=== PATIENT | male | born 1945 | race Caucasian/White ===

== ENCOUNTER 2017-10-02 08:59 | Observation (INO) | payer OTHER ==
[2017-10-01 14:58] VITALS: BP 170/95
[2017-10-01 15:24] LABS: APPEARANCE,URINE Clear (CLEAR); BILIRUBIN,URINE Negative (NEGATIVE); COLOR,URINE Yellow (YELLOW); GLUCOSE, URINE (UA) Negative (NEGATIVE); KETONES,URINE Negative (NEGATIVE); LEUKOCYTE ESTERASE ,URINE Negative (NEGATIVE); NITRATE,URINE Negative (NEGATIVE); OCCULT BLOOD,URINE Negative (NEGATIVE); PH,URINE 5.5 (5.0-8.0); PROTEIN,URINE POS 1+ (NEGATIVE)
[2017-10-01 15:47] LABS: BACTERIA,URINE Rare /HPF (None Seen); RBC,URINE None Seen /HPF (0-1); SQUAMOUS EPITHELIAL CELL,UR Rare /HPF (0-2); WBC,URINE 0-1 /HPF (0-1)
[2017-10-01 15:50] LABS: INR 0.99 (0.85-1.15); PARTIAL THROMBOPLASTIN TIME 26.5 SEC (26.3-35.5); PROTHROMBIN TIME 10.4 SEC (9.6-11.6)
[~2017-10-02] VITALS: Ht 177.8 cm; Wt 123.5 kg
[2017-10-02] VITALS (21 sets, daily range): BP systolic 117–166; BP diastolic 71–100
[~2017-10-02 08:59] MED LIST: ATOR40TA71 PO; CARV12.511 PO; LOSA25TA21 PO; NITR0.4T50 SL
[2017-10-02] MEDS ORDERED: LACTATED RINGERS 1000ML 1,000 ML IV ONE (10:40)
[2017-10-02] MEDS ORDERED: CELECOXIB 200 MG CAP ONE (11:01)
[2017-10-02] MEDS ORDERED: ACETAMINOPHEN EXTRA STRENGTH 500 MG TABLET ONE ×2 (11:01→11:07)
[2017-10-02] MEDS ORDERED: KETOROLAC TROMETHAMINE 15MG/ML ONE (11:02)
[2017-10-02] MEDS ORDERED: OXYCODONE HCL 10 MG TAB.SR.12H PO ONE (11:02)
[2017-10-02] MEDS ORDERED: LIDOCAINE PF 2% 5ML ABBOJECT ONE (11:14)
[2017-10-02] MEDS ORDERED: LIDOCAINE HCL-MPF 1% 5ML AMP IJ ONE (11:14)
[2017-10-02] MEDS ORDERED: LIDOCAINE HCL 4% LTA SOL 4 ML VIAL ONE (11:14)
[2017-10-02] MEDS ORDERED: SODIUM CHLORIDE 0.9% 10 ML VIAL ONE (11:14)
[2017-10-02] MEDS ORDERED: ROCURONIUM BROMIDE 10MG/1ML 5ML VL ONE (11:14)
[2017-10-02] MEDS ORDERED: LIDOCAINE HCL 2% JELLY 5 ML ONE (11:14)
[2017-10-02] MEDS ORDERED: DEXAMETHASONE SOD PHOSPHATE 10MG/ML 1ML VIAL ONE (11:14)
[2017-10-02] MEDS ORDERED: ONDANSETRON HCL MDV 20ML 2 MG/ML VIAL ONE (11:14)
[2017-10-02] MEDS ORDERED: PHENYLEPHRINE HCL 10 MG/ML 1ML VIAL IV ONE (11:14)
[2017-10-02] MEDS ORDERED: NEOSTIGMINE METHYLSULFATE 1MG/ML IV ONE (11:14)
[2017-10-02] MEDS ORDERED: GLYCOPYRROLATE 0.2 MG/ML 5 ML VIAL ONE (11:14)
[2017-10-02] MEDS ORDERED: CEFAZOLIN SODIUM 1 GM VIAL ONE (11:29)
[2017-10-02] MEDS ORDERED: BUPIVACAINE/EPI/PF 0.25% 30ML VIAL IJ ONE (11:29)
[2017-10-02] MEDS ORDERED: TRANEXAMIC ACID 1000MG/10ML IV ONE (11:30)
[2017-10-02] MEDS: CEFAZOLIN SODIUM 1 GM VIAL ONE ×2 (11:37→11:50)
[2017-10-02] MEDS ORDERED: MEPERIDINE-PF 25 MG/ML SYG ONE ×2 (13:58→14:17)
[2017-10-02] MEDS ORDERED: OXYCODONE HCL 5 MG TAB PO PRN (16:30)
[2017-10-02] MEDS: OXYCODONE HCL 5 MG TAB PO PRN (17:10)
[2017-10-02] MEDS ORDERED: COMPOUND IV REFRIGERATED 1 EACH IVSOLN MISC PRN (17:30)
[2017-10-02] MEDS ORDERED: DIPHENHYDRAMINE HCL 25 MG CAPSULE PO PRN (18:30)
[2017-10-02] MEDS ORDERED: FERROUS FUMARATE 324 MG TABLET PO PRN (18:30)
[2017-10-02] MEDS ORDERED: POTASSIUM CHLORIDE 20 MEQ ERTAB PO PRN (18:30)
[2017-10-02] MEDS ORDERED: CALCIUM CARBONATE 500 MG TABLET PO PRN (18:30)
[2017-10-02] MEDS ORDERED: DiphenhydrAMINE HCL 50 MG/ML VIAL IVP PRN (18:30)
[2017-10-02] MEDS ORDERED: LIDOCAINE HCL-MPF 1% 2ML VIAL IVP PRN (18:30)
[2017-10-02] MEDS ORDERED: POTASSIUM CHLORIDE 20MEQ/100ML 100 ML IV PRN (18:30)
[2017-10-02] MEDS ORDERED: POTASSIUM CHLORIDE 10% ELIXIR 20 MEQ/15 ML UDCUP PO PRN (18:30)
[2017-10-02] MEDS: SODIUM CHLORIDE 0.9% 1000ML 1,000 ML IV SCH (18:54)
[2017-10-02] MEDS ORDERED: TRAMADOL HCL 50 MG TABLET PO PRN (19:00)
[2017-10-02] MEDS ORDERED: PROMETHAZINE HCL 25 MG/ML 1ML AMPULE IM PRN (19:00)
[2017-10-02] MEDS: ASPIRIN 325 MG TABLET PO SCH (20:41)
[2017-10-02] MEDS: ACETAMINOPHEN 325 MG TAB PO SCH (20:41)
[2017-10-02] MEDS: CEFAZOLIN 3GM /D5W 100ML 100 ML IV SCH (20:42)
[2017-10-02] MEDS: FAMOTIDINE 20MG TAB 20 MG TAB PO SCH (20:42)
[2017-10-02] MEDS: CARVEDILOL 12.5 MG TABLET PO SCH (20:47)
[2017-10-02] MEDS ORDERED: TEMAZEPAM 15 MG CAPSULE PO PRN (21:00)
[2017-10-02] MEDS ORDERED: ATORVASTATIN CALCIUM 40 MG TABLET PO SCH (21:00)
[2017-10-02] MEDS ORDERED: BENZOCAINE/MENTH/CETYLPYRD CL 1 EACH LOZENGE MM PRN (21:45)
[2017-10-03] MEDS: ACETAMINOPHEN 325 MG TAB PO SCH ×3 (00:09→11:54)
[2017-10-03 00:11] VITALS: BP 130/64
[2017-10-03] MEDS: CEFAZOLIN 3GM /D5W 100ML 100 ML IV SCH (02:41)
[2017-10-03] MEDS: SODIUM CHLORIDE 0.9% 1000ML 1,000 ML IV SCH ×2 (02:45→14:29)
[2017-10-03] MEDS: OXYCODONE HCL 5 MG TAB PO PRN ×2 (03:36→08:57)
[2017-10-03 04:41] VITALS: BP 129/61
[2017-10-03 05:19] LABS: HEMATOCRIT 31.4 % (42-54); MEAN CORPUSCULAR HEMOGLOBIN 32.5 pg (27.0-33.0); MEAN CORPUSCULAR HGB CONC 35.1 g/dL (32.0-36.0); MEAN CORPUSCULAR VOLUME 92.5 fL (79-99); PLATELET COUNT (AUTO) 217 K/uL (130-400); RED BLOOD CELL COUNT(AUTO) 3.39 MIL/uL (4.50-6.20); RED CELL DISTRIBUTION WIDTH 12.9 % (11.0-15.5); WHITE BLOOD COUNT (AUTO) 13.5 K/uL (4.8-10.8)
[2017-10-03 05:27] LABS: INR 1.06 (0.85-1.15); PROTHROMBIN TIME 10.9 SEC (9.6-11.6)
[2017-10-03 05:28] LABS: CREATININE 0.9 mg/dL (0.5-1.5)
[2017-10-03 08:01] VITALS: BP 145/71
[2017-10-03] MEDS: ASPIRIN 325 MG TABLET PO SCH (08:55)
[2017-10-03] MEDS: CARVEDILOL 12.5 MG TABLET PO SCH (08:56)
[2017-10-03] MEDS: FAMOTIDINE 20MG TAB 20 MG TAB PO SCH (08:57)
[2017-10-03] MEDS ORDERED: TAMSULOSIN HCL 0.4 MG CAP.ER.24H PO SCH (09:00)
[2017-10-03] MEDS ORDERED: POLYETHYLENE GLYCOL 3350 17 GM POWD.PACK PO SCH (09:00)
[2017-10-03 11:37] VITALS: BP 127/61
[2017-10-03] MEDS ORDERED: PSYLLIUM SEED 1 EACH PACKET PO SCH (12:00)
[2017-10-03] MEDS ORDERED: HYDR-309 PO (12:05)
[2017-10-03] MEDS ORDERED: ASPI-1012 PO (12:05)
[2017-10-04] MEDS ORDERED: BISACODYL 5 MG TABLET.DR PO PRN (18:30)
[2017-10-05] MEDS ORDERED: BISACODYL 10 MG SUPP.RECT RC PRN (18:30)
== END 2017-10-03 15:28 | disposition home health service (06) ==
LOC: DAH 08:59 → DAHIP 09:00 → DAH 09:00 → EDSTATUS 14:18 → 4AH 15:17
PROVIDERS: ADMIT Orthopaedic Surgery; ATTEND Orthopaedic Surgery
DX: M17.12 Unilateral primary osteoarthritis, left knee (principal); I11.9 Hypertensive heart disease without heart failure; N18.9 Chronic kidney disease, unspecified; Z79.899 Other long term (current) drug therapy; Z85.46 Personal history of malignant neoplasm of prostate
CPT/HCPCS: 27447; 36415 ×2; 80048; 81001; 85027; 85610 ×2; 85730; 88304; 88311; 94640; 96365; 96375; 97116 ×2; 97161; 97530 ×2; A4218; A4649 ×5; A4930 ×2; A9272; C1713; C1776; G0378 ×30; G8978; G8979; G8980; G8981; G8982; G8983; J0690 ×3; J1100; J2001; J2175 ×2; J2370; J2710; J3490 ×5; J7120 ×2; 96374; J1885

== ENCOUNTER 2017-10-05 18:37 | Emergency (ER) | payer OTHER ==
[~2017-10-05 18:37] MED LIST changes: +ASPI-1012 PO; +HYDR-309 PO; -LOSA25TA21 PO
[2017-10-05] MEDS ORDERED: SODIUM CHLORIDE 0.9% 1000ML 1,000 ML IV ONE (19:35)
[2017-10-05] MEDS ORDERED: CHLORPROMAZINE HCL 25 MG/ML 1ML AMP ONE ×2 (19:41→21:56)
[2017-10-05 20:18] LABS: BASOPHILS % (AUTO) 2.7 % (0.0-5.0); EOSINOPHILS % (AUTO) 0.2 % (0.0-8.0); HEMATOCRIT 28.1 % (42-54); LYMPHOCYTES % (AUTO) 7.7 % (21.0-51.0); MEAN CORPUSCULAR HEMOGLOBIN 31.6 pg (27.0-33.0); MEAN CORPUSCULAR HGB CONC 34.2 g/dL (32.0-36.0); MEAN CORPUSCULAR VOLUME 92.3 fL (79-99); MONOCYTES % (AUTO) 8.6 % (3.0-13.0); NEUTROPHILS % (AUTO) 80.8 % (40.0-77.0); PLATELET COUNT (AUTO) 211 K/uL (130-400); RED BLOOD CELL COUNT(AUTO) 3.04 MIL/uL (4.50-6.20); RED CELL DISTRIBUTION WIDTH 13.4 % (11.0-15.5)
[2017-10-05 20:26] LABS: POTASSIUM 3.7 mmol/L (3.5-5.1)
== END 2017-10-05 23:55 | disposition home or self-care (01) ==
LOC: EDH 18:37
DX: R06.6 Hiccough (principal); I10 Essential (primary) hypertension; E78.5 Hyperlipidemia, unspecified; Z88.8 Allergy status to other drugs, medicaments and biological substances; Z85.46 Personal history of malignant neoplasm of prostate; Z98.890 Other specified postprocedural states; Z72.0 Tobacco use
CPT/HCPCS: 36415; 80048; 85025; 96360; 96361; 96372 ×2; 99285; J3230 ×2; J7030

== ENCOUNTER → 2018-03-10 | Outpatient (CLI) | payer OTHER ==
[~2018-03-10] VITALS: Ht 175.3 cm; Wt 116.1 kg
[~2018-03-10] MED LIST changes: -ASPI-1012 PO; +CEFAZOLIN SODIUM 1 GM VIAL IVP SCH; +LEVO25TA54 PO; +MELO-108 PO; +TIZA2CAP9 PO
[2018-03-10 10:48] VITALS: BP 144/78
[2018-03-10 11:05] LABS: APPEARANCE,URINE Clear (CLEAR); BILIRUBIN,URINE Negative (NEGATIVE); COLOR,URINE Yellow (YELLOW); GLUCOSE, URINE (UA) Negative (NEGATIVE); KETONES,URINE Negative (NEGATIVE); LEUKOCYTE ESTERASE ,URINE Trace (NEGATIVE); NITRATE,URINE Negative (NEGATIVE); OCCULT BLOOD,URINE Moderate (NEGATIVE); PROTEIN,URINE Trace (NEGATIVE)
[2018-03-10 11:22] LABS: BACTERIA,URINE Rare /HPF (None Seen); RBC,URINE >100 /HPF (0-1); SQUAMOUS EPITHELIAL CELL,UR Rare /HPF (0-2); WBC,URINE 0-1 /HPF (0-1)
[2018-03-10 11:31] LABS: BASOPHILS % (AUTO) 0.2 % (0.0-5.0); EOSINOPHILS % (AUTO) 3.6 % (0.0-8.0); HEMATOCRIT 41.3 % (42-54); LYMPHOCYTES % (AUTO) 34.9 % (21.0-51.0); MEAN CORPUSCULAR HEMOGLOBIN 31.7 pg (27.0-33.0); MEAN CORPUSCULAR HGB CONC 33.8 g/dL (32.0-36.0); MEAN CORPUSCULAR VOLUME 93.8 fL (79-99); MONOCYTES % (AUTO) 10.2 % (3.0-13.0); NEUTROPHILS % (AUTO) 51.1 % (40.0-77.0); PLATELET COUNT (AUTO) 273 K/uL (130-400); RED BLOOD CELL COUNT(AUTO) 4.41 MIL/uL (4.50-6.20); RED CELL DISTRIBUTION WIDTH 13.8 % (11.0-15.5); WHITE BLOOD COUNT (AUTO) 6.8 K/uL (4.8-10.8)
[2018-03-10 11:39] LABS: CREATININE 0.8 mg/dL (0.5-1.5); POTASSIUM 4.2 mmol/L (3.5-5.1)
== END ==
LOC: DAH 10:00 → EDSTATUS 10:00
PROVIDERS: ATTEND Urology
DX: N35.9 Urethral stricture, unspecified (principal); Z53.9 Procedure and treatment not carried out, unspecified reason; Z88.8 Allergy status to other drugs, medicaments and biological substances
CPT/HCPCS: 36415; 80048; 81001; 85025; 87088; 93005

== ENCOUNTER → 2019-03-19 | Outpatient (CLI) | payer OTHER ==
[~2019-03-19] MED LIST changes: -CEFAZOLIN SODIUM 1 GM VIAL IVP SCH; -HYDR-309 PO; -MELO-108 PO; -NITR0.4T50 SL; -TIZA2CAP9 PO
== END | disposition home or self-care (01) ==
LOC: RAH 12:27
PROVIDERS: ATTEND Urology
DX: N20.0 Calculus of kidney (principal); K57.30 Diverticulosis of large intestine without perforation or abscess without bleeding; N28.1 Cyst of kidney, acquired; M47.819 Spondylosis without myelopathy or radiculopathy, site unspecified
CPT/HCPCS: 74176

== ENCOUNTER → 2019-04-02 | Outpatient (CLI) | payer OTHER | END | disposition home or self-care (01) | LOC: RAH 11:02 | PROVIDERS: ATTEND Urology | DX: N20.0 Calculus of kidney (principal) | CPT/HCPCS: 74018; 76100 ==

== ENCOUNTER → 2019-04-27 | Outpatient (CLI) | payer OTHER | END | disposition home or self-care (01) | LOC: RAH 04-24 09:03 | PROVIDERS: ATTEND Urology | DX: N20.0 Calculus of kidney (principal) | CPT/HCPCS: 74018; 76100 ==

== ENCOUNTER 2019-08-04 10:27 | Emergency (ER) | payer OTHER ==
[2019-08-04] MEDS ORDERED: ACETAMINOPHEN EXTRA STRENGTH 500 MG TABLET ONE (11:32)
[2019-08-04 11:47] LABS: BASOPHILS % (AUTO) 0.2 % (0.0-5.0); EOSINOPHILS % (AUTO) 0.1 % (0.0-8.0); HEMATOCRIT 40.9 % (42-54); LYMPHOCYTES % (AUTO) 5.6 % (21.0-51.0); MEAN CORPUSCULAR HGB CONC 33.3 g/dL (32.0-36.0); MEAN CORPUSCULAR VOLUME 93.2 fL (79-99); MONOCYTES % (AUTO) 10.6 % (3.0-13.0); PLATELET COUNT (AUTO) 210 K/uL (130-400); RED BLOOD CELL COUNT(AUTO) 4.39 MIL/uL (4.50-6.20); RED CELL DISTRIBUTION WIDTH 12.3 % (11.0-15.5); WHITE BLOOD COUNT (AUTO) 19.5 K/uL (4.8-10.8)
[2019-08-04 11:54] LABS: CREATININE 1.2 mg/dL (0.5-1.5); POTASSIUM 3.8 mmol/L (3.5-5.1)
[2019-08-04 11:59] LABS: ALBUMIN 3.4 g/dL (3.5-5.0); BILIRUBIN,TOTAL 0.7 mg/dL (0.2-1.0); TOTAL PROTEIN, SERUM 7.5 g/dL (6.0-8.3)
[2019-08-04 12:09] LABS: B-TYPE NATRIURETIC PEPTIDE 170 pg/mL (0-100)
[2019-08-04 14:21] LABS: APPEARANCE,URINE Clear (CLEAR); BILIRUBIN,URINE Negative (NEGATIVE); COLOR,URINE Yellow (YELLOW); GLUCOSE, URINE (UA) Negative (NEGATIVE); KETONES,URINE Negative (NEGATIVE); LEUKOCYTE ESTERASE ,URINE Negative (NEGATIVE); NITRATE,URINE Negative (NEGATIVE); OCCULT BLOOD,URINE Negative (NEGATIVE); PROTEIN,URINE POS 1+ mg/dL (NEGATIVE); UROBILINOGEN,URINE 0.2 mg/dL (0.2-1.0)
[2019-08-04 14:28] LABS: BACTERIA,URINE None Seen /HPF (None Seen); RBC,URINE 0-1 /HPF (0-1); SQUAMOUS EPITHELIAL CELL,UR 0-2 /HPF (0-2); WBC,URINE 0-1 /HPF (0-1)
[2019-08-04] MEDS ORDERED: CEFTRIAXONE SODIUM 1 GM ONE (14:39)
[2019-08-04] MEDS ORDERED: LIDOCAINE HCL-MPF 1% 2ML VIAL ONE (14:39)
== END 2019-08-04 14:49 | disposition home or self-care (01) ==
LOC: EDH 10:27
DX: J20.9 Acute bronchitis, unspecified (principal); E78.5 Hyperlipidemia, unspecified; I10 Essential (primary) hypertension; Z87.442 Personal history of urinary calculi; Z85.46 Personal history of malignant neoplasm of prostate; Z88.8 Allergy status to other drugs, medicaments and biological substances
CPT/HCPCS: 36415; 71045; 80053; 81001; 83880; 84484; 85025; 87804 ×2; 93005; 96372; 99285; J0696; J3490

== ENCOUNTER → 2023-09-18 | Outpatient (CLI) | payer OTHER ==
[~2023-09-18] MED LIST changes: +CHOL100046 PO
== END | disposition home or self-care (01) ==
LOC: RAH 14:32
PROVIDERS: ATTEND Family Medicine
DX: M19.012 Primary osteoarthritis, left shoulder (principal); M25.712 Osteophyte, left shoulder; M75.122 Complete rotator cuff tear or rupture of left shoulder, not specified as traumatic; M25.812 Other specified joint disorders, left shoulder
CPT/HCPCS: 73221